=== PATIENT | male | born 1965 | race Caucasian/White ===

== ENCOUNTER 2022-11-13 10:50 | Outpatient (REF) | payer SELFPAY ==
[2022-11-13 10:59] LABS: MANUAL DIFF FLAG NO
[2022-11-13 11:48] LABS: Basophils Percent Auto 0.7 % (0-2); Eosinophils Absolute Auto 0.3 X10*3/uL (0.0-0.4); Eosinophils Percent Auto 4.8 % (0-4); Hematocrit 49.6 % (42.0-52.0); Hemoglobin 16.8 g/dl (14.0-18.0); Imm Gran Abs Auto 0.02 X10*3/uL (0.00-0.03); Imm Gran Pct Auto 0.4 % (0.0-0.4); Lymphocytes Absolute Auto 1.4 X10*3/uL (1.2-4.9); Lymphocytes Percent Auto 25.2 % (20-40); Mean Corpuscular HGB Conc 33.9 g/dl (31.0-36.0); Mean Corpuscular Hemoglobin 30.5 pg (27.0-33.0); Mean Platelet Volume 9.4 fL (9.4-12.4); Monocytes Absolute Auto 0.6 X10*3/uL (0.1-1.2); Monocytes Percent Auto 10.1 % (2-11); Neutrophils Absolute Auto 3.3 x10*3/uL (2.0-8.3); Neutrophils Percent Auto 58.8 % (45-73); Platelet Count 263 X10*3/uL (160-400); Red Blood Count 5.51 X10*6/uL (4.60-5.80); White Blood Count 5.6 X10*3/uL (4.8-10.8)
[2022-11-13 11:58] LABS: Alanine Aminotransferase 23 U/L (0-40); Albumin Level 4.6 g/dL (3.5-5.0); Alkaline Phosphatase 55 U/L (39-117); Anion Gap 12 (12-20); Aspartate Amino Transferase 24 U/L (5-37); Bilirubin Total 1.3 mg/dL (0.0-1.0); Blood Urea Nitrogen 21 mg/dL (9-16); Calcium 9.8 mg/dL (8.4-10.2); Carbon Dioxide 27 mmol/L (22-29); Chloride 105 mmol/L (96-108); Cholesterol 216 mg/dL; Estimated Glomerular Filt Rate > 60; Glucose Fasting 93 mg/dL (60-99); HDL Cholesterol 62 mg/dL; LDL Cholesterol Calculated 133 mg/dl; Potassium 3.8 mmol/L (3.3-5.1); Sodium 140 mmol/L (135-145); Total Protein 7.2 g/dL (6.5-8.0); Triglycerides 107 mg/dL
[2022-11-13 12:02] LABS: Appearance Urine Clear; Color Urine Yellow; Glucose Urine UA Negative (Negative); Leukocyte Esterase Urine Negative (Negative); Nitrite Urine Negative (Negative); Specific Gravity - Urine >= 1.030 (1.005-1.025); Urine Blood Negative (Negative); Urine Ketones Negative (Negative); Urine Protein Negative (Neg-Trace)
[2022-11-13 12:17] LABS: PSA,Total (Free>4and<10) 1.37 ng/mL (0.00-4.00)
[2022-11-13 14:09] LABS: Bacteria Urine None Seen (None Seen); RBC Urine 0-2 /HPF (0-2); Squamous Epithelial Cell Urine 0-2 /HPF (0-2); WBC Urine 0-5 /HPF (0-5)
== END 2022-11-13 10:51 | disposition home or self-care (01) ==
LOC: HO.LNP 10:50
PROVIDERS: Visit Provider Internal Medicine
DX: Z00.00 Encounter for general adult medical examination without abnormal findings (principal); Z12.5 Encounter for screening for malignant neoplasm of prostate
CPT/HCPCS: 80053; 80061; 81001; 84153; 85025

== ENCOUNTER 2023-11-16 10:34 | Outpatient (REF) | payer SELFPAY ==
[2023-11-16 10:37] LABS: MANUAL DIFF FLAG NO
[2023-11-16 10:46] LABS: Basophils Absolute Auto 0.1 X10*3/uL (0.0-0.2); Basophils Percent Auto 0.9 % (0-2); Eosinophils Absolute Auto 0.5 X10*3/uL (0.0-0.4); Hematocrit 45.3 % (42.0-52.0); Imm Gran Abs Auto 0.02 X10*3/uL (0.00-0.03); Imm Gran Pct Auto 0.4 % (0.0-0.4); Lymphocytes Absolute Auto 1.5 X10*3/uL (1.2-4.9); Lymphocytes Percent Auto 27.7 % (20-40); Mean Corpuscular HGB Conc 35.3 g/dl (31.0-36.0); Mean Corpuscular Hemoglobin 31.4 pg (27.0-33.0); Mean Platelet Volume 9.5 fL (9.4-12.4); Monocytes Absolute Auto 0.6 X10*3/uL (0.1-1.2); Neutrophils Absolute Auto 2.7 x10*3/uL (2.0-8.3); Platelet Count 248 X10*3/uL (160-400); Red Blood Count 5.09 X10*6/uL (4.60-5.80); Red Cell Distribution Width 12.4 % (11.0-16.0); White Blood Count 5.4 X10*3/uL (4.8-10.8)
[2023-11-16 10:48] LABS: Appearance Urine Clear; Color Urine Yellow; Glucose Urine UA Negative (Negative); Leukocyte Esterase Urine Negative (Negative); Nitrite Urine Negative (Negative); Specific Gravity - Urine 1.025 (1.005-1.025); Urine Blood Negative (Negative); Urine Ketones Negative (Negative); Urine Protein Negative (Neg-Trace)
[2023-11-16 10:57] LABS: Bacteria Urine None Seen (None Seen); Hyaline Casts Urine 0-2 /LPF (0-2); RBC Urine 0-2 /HPF (0-2); Squamous Epithelial Cell Urine 0-2 /HPF (0-2); WBC Urine 0-5 /HPF (0-5)
[2023-11-16 11:20] LABS: Alanine Aminotransferase 23 U/L (0-40); Albumin Level 4.5 g/dL (3.5-5.0); Alkaline Phosphatase 54 U/L (39-117); Anion Gap 15 (12-20); Aspartate Amino Transferase 27 U/L (5-37); Bilirubin Total 1.3 mg/dL (0.0-1.0); Blood Urea Nitrogen 17 mg/dL (9-16); Calcium 9.8 mg/dL (8.4-10.2); Carbon Dioxide 24 mmol/L (22-29); Chloride 106 mmol/L (96-108); Cholesterol 177 mg/dL (<200); Estimated Glomerular Filt Rate > 60; Glucose Random 89 mg/dL (60-115); HDL Cholesterol 56 mg/dL (>40); LDL Cholesterol Calculated 98 mg/dL (<100); Sodium 141 mmol/L (135-145); Triglycerides 119 mg/dL (<150)
[2023-11-16 11:29] LABS: PSA,Total (Free>4and<10) 1.02 ng/mL (0.00-4.00)
== END 2023-11-16 10:35 | disposition home or self-care (01) ==
LOC: HO.LNP 10:34
PROVIDERS: Visit Provider Internal Medicine
DX: Z00.00 Encounter for general adult medical examination without abnormal findings (principal); Z12.5 Encounter for screening for malignant neoplasm of prostate
CPT/HCPCS: 80053; 80061; 81001; 84153; 85025

== ENCOUNTER 2024-11-24 10:13 | Outpatient (REF) | payer OTHER, SELFPAY ==
--- OUTSIDE RECORDS SUMMARY | 2024-11-24 04:00 | XMS_ITS ---
Author Organization Hasmukh Moreno MD Address [address] [place], [place] [id number] Care Team Providers Care Wire Welder Name Role Phone Hasmuhk Moreno Primary Care Provider REASON FOR VISIT fasting labs Problems No Known Problems Encounters Encounter Location Date Provider Diagnosis Hasmukh Moreno MD [address] [place], [place] [id number] 11/24/2024 Hasmukh Moreno Blood tests for routine general physical examination Z00.00 Assessments Encounter Date Diagnosis (ICD Code) Assessment Notes Treatment Notes Treatment Clinical Notes Section Notes 11/24/2024 Blood tests for routine general physical examination (ICD-10 - Z00.00) Plan Of Treatment Pending Test Test Name Order Date Complete Blood Count Auto Diff 5 Comprehensive [place]. Panel Fast 5 Lipid Panel 11/24/2024 PSA,Total (Free>4and<10) 11/24/2024 UA ClnCatch+Micro w/rflx Cult 11/24/2024 Next Appt Details Provider Name:Hasmukh Trejo ier, 12/14/2024 09:30:00 AM, [address], [address], [place], [place], [id number], Progress Notes * Dejah WHEELEROB:1965 (58 yo M)Acc No.[id number]:11/24/2024 Progress Note Patient: Aashish STEPHANIEGato REYESw Provider: Farrah Moreno MD :1965 A ge:58 Y S ex:Male Date:11/24/2024 Address:[address], [place] , [id number] Subjective: * Chief Complaints: * 1 . Fasting labs. * Medical History: Objective: * Vitals: Assessment: * Assessment: 1. B lood tests for routine general physical examination - Z00.00 (Primary) Plan: * Treatment: * Procedure Codes: 3 6415 VENIPUNCT, ROUTINE* * * The named appointment provid er may or may not be the originator of this progress note, and it is not deemed complete until electronically signed by the appointment provider. Sign off status: Pending * Provider: Farrah Moreno MD Date: 11/24/2024 Generated for Elizabeth espinal/Dontrell/Yonisitting on: 11/24/2024 10:22 AM EDT
[2024-11-24 10:15] LABS: MANUAL DIFF FLAG NO
[2024-11-24 10:21] LABS: Appearance Urine Clear; Glucose Urine UA Negative (Negative); Hematocrit 48.0 % (42.0-52.0); Hemoglobin 17.1 g/dl (14.0-18.0); Imm Gran Abs Auto 0.03 X10*3/uL (0.00-0.03); Imm Gran Pct Auto 0.5 % (0.0-0.4); Lymphocytes Absolute Auto 1.3 X10*3/uL (1.2-4.9); Mean Corpuscular HGB Conc 35.6 g/dl (31.0-36.0); Mean Corpuscular Hemoglobin 30.9 pg (27.0-33.0); Mean Corpuscular Volume 86.8 fL (80.0-98.0); NRBC Abs Auto 0.000 X10*3/uL (0.0-0.012); NRBC Pct Auto 0.0 /100WBC (0.0-0.2); PH 5.5 (5.0-9.0); Platelet Count 277 X10*3/uL (160-400); Red Blood Count 5.53 X10*6/uL (4.60-5.80); Specific Gravity - Urine 1.020 (1.005-1.025); White Blood Count 6.0 X10*3/uL (4.8-10.8)
--- OUTSIDE RECORDS SUMMARY | 2024-11-24 10:22 | XMS_ITS | Encounter Summary ---
Author Organization [facility] Address [address] [place] [address] [place] [id number] Phone Care Team Providers Care Scrum Project Manager Name Role Phone Ari Garcia MD Primary Care Provider [phone] Encounter Details Date Type Department Care Team (Late st Contact Info) Description 07/10/2019 Ancillary Orders [facility], X-Ray - [facility] [address] [place] [address] Hasmukh Moreon MD [address] [place] [address] [place] [address] Nasal discharge Social History Tobacco Use Types Packs/Day Years Used Date Smoking Tobacco: Never Smokeless Tobacco: Never Alcohol Use Standard Drinks/Week Comments Yes 0 (1 standard drink = 0.6 oz pur e alcohol) Sex and Gender Information Value Date Recorded Sex Assigned at Male 06/06/2019 10:25 AM EST Legal Sex Male 9:39 PM EDT Gender Identity Male 06/06/2019 10:25 AM EST Sexual Orientation Not on file 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 POS - [id number] Narrative 07/10/2019 12:21 PM EDT Paranasal sinuses 4 views. No prior. Normal pneumatization and aeration. No thickening or fluid levels. No bony lesions detected. Sella turcica not enlarged. Procedure Note Devon Ritter MD - 07/10/2019 Paranasal sinuses 4 views. No prior. Normal pneumatization and aeration.No thickening or fluid levels. No bony lesions detected. Sella turcica notenlarged. IMPRESSION: No plain film findings of sinusitis. POS - [id number] Hasmukh Moreno MD IMG XR HEAD AND SHUNT S ERIES Final Result documented in this encounter Visit Diagnoses Diagnosis Nasal discharge Other diseases of nasal cavity and sinuses Nasal discharge Other diseases of nasal cavity and sinuses documented in this encounter Additional Health Concerns Assessment Noted Time PHQ-2 Depression Total Score: 1 06/09/19 20 10:07 AM EST documented as of this encounter Care Teams Scrum Project Manager Relationship Specialty Start Date End Date Ari Garcia MD [address] [place] [address], [address] [place] [address] [email or web address] PCP - General Internal Medicine 06/16/19 12/29/23 documented as of this encounter Additional Source Comments The information contained in this document represents components of the legal health record. It is not the complete legal health record.[facility]
[2024-11-24 10:33] LABS: Alanine Aminotransferase 37 U/L (0-40); Albumin Level 4.8 g/dL (3.5-5.0); Alkaline Phosphatase 67 U/L (39-117); Anion Gap 12 (12-20); Aspartate Amino Transferase 35 U/L (5-37); Blood Urea Nitrogen 14 mg/dL (9-16); Calcium 8.9 mg/dL (8.4-10.2); Carbon Dioxide 24 mmol/L (22-29); Chloride 109 mmol/L (96-108); Cholesterol 183 mg/dL (<200); Estimated Glomerular Filt Rate > 60; HDL Cholesterol 50 mg/dL (>40); Potassium 4.4 mmol/L (3.3-5.1); Sodium 141 mmol/L (135-145); Total Protein 7.2 g/dL (6.5-8.0); Triglycerides 152 mg/dL (<150)
[2024-11-24 10:55] LABS: PSA,Total (Free>4and<10) 1.18 ng/mL (0.00-4.00)
== END 2024-11-24 10:14 | disposition home or self-care (01) ==
LOC: HO.LNP 10:13
PROVIDERS: Visit Provider Internal Medicine
DX: Z00.00 Encounter for general adult medical examination without abnormal findings (principal)
CPT/HCPCS: 80053; 80061; 81001; 84153; 85025